=== PATIENT | male | born 1990 | race Caucasian/White ===

== ENCOUNTER 2017-12-15 06:57 | Emergency (ER) | payer OTHER ==
[2017-12-15 07:15] VITALS: BP 123/70; PULSE 91; RESP 18; TEMP 98.7; O2SAT 99
[2017-12-15 07:17] VITALS: BMI 23.1
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
== END 2017-12-15 09:20 | disposition home or self-care (01) ==
LOC: H.ER 06:57
DX: S00.83XA Contusion of other part of head, initial encounter (principal); S01.512A Laceration without foreign body of oral cavity, initial encounter; Y04.2XXA Assault by strike against or bumped into by another person, initial encounter

== ENCOUNTER 2018-05-05 10:55 | Emergency (ER) | payer OTHER ==
[2018-05-05 11:06] VITALS: O2SAT 100
[2018-05-05 11:07] VITALS: BMI 24.6
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
[2018-05-05] MEDS ORDERED: Tdap Vaccine 0.5 ml Vial (10-64 yrs) IM ONE ×2 (11:45→11:59)
[2018-05-05] MEDS ORDERED: Bacitracin 500 Units/gm Oint Foilpak UD TOP STA (11:45)
[2018-05-05] MEDS ORDERED: Bacitracin 500 Units/gm Oint Foilpak UD ONE (12:00)
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
[2018-05-05 14:22] VITALS: BP 128/77; PULSE 78; RESP 16; TEMP 98.2
== END 2018-05-05 14:22 | disposition home or self-care (01) ==
LOC: H.ER 10:55
DX: M25.511 Pain in right shoulder (principal); Y99.0 Civilian activity done for income or pay
CPT/HCPCS: 73030; 90471; 90715; 96374; 99283; J1885

== ENCOUNTER 2018-07-20 15:35 | Emergency (ER) | payer OTHER ==
[2018-07-20 15:36] VITALS: BMI 24.6
[2018-07-20 15:41] VITALS: BP 126/79; PULSE 94; RESP 18; TEMP 98; O2SAT 99
[2018-07-20] MEDS ORDERED: PROPARACAINE/FLUORESCEIN SOD 100 DROP/5 ML BOTTLE OD STA (15:43)
[2018-07-20] MEDS ORDERED: PROPARACAINE/FLUORESCEIN SOD 100 DROP/5 ML BOTTLE ONE (16:10)
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
[2018-07-20] MEDS ORDERED: Tobramycin 0.3% OPHT SOLN OD ONE (17:00)
== END 2018-07-20 17:24 | disposition home or self-care (01) ==
LOC: H.ER 15:35
DX: S05.01XA Injury of conjunctiva and corneal abrasion without foreign body, right eye, initial encounter (principal); H57.89 Other specified disorders of eye and adnexa; Z87.891 Personal history of nicotine dependence; Y04.2XXA Assault by strike against or bumped into by another person, initial encounter; Y99.0 Civilian activity done for income or pay